=== PATIENT | male | born 1995 | race Caucasian/White ===

== ENCOUNTER 2019-09-28 01:18 | Emergency (ER) | payer SELFPAY ==
[~2019-09-28] VITALS: Ht 177.8 cm; Wt 104.3 kg
[2019-09-28 02:10] VITALS: BP_SYST 143
--- NOTE | 2019-09-28 02:20 | NUR ---
Patient triaged and placed in waiting room. VSS and patient appears in no acute distress at this time. Accompanied by family, awaiting available bed, and MD notified of need for MSE.
--- NOTE | 2019-09-28 02:25 | NUR ---
Pt C/O generalized rash and pruritis since last night. Pt reports bodyaches, fever, generalized wekaness, loss of smell and taste for the past two weeks but has been improving. Recent covid test done yesterday and results pending. VSS will continue to monitor.
--- NOTE | 2019-09-28 02:26 | NUR ---
ER Dr. Sanchez at bedside examining patient.
[2019-09-28] MEDS ORDERED: DIPHENHYDRAMINE HCL 50 MG CAPSULE PO ONE (02:45)
[2019-09-28] MEDS ORDERED: FAMOTIDINE 20 MG TABLET PO ONE (02:45)
[2019-09-28] MEDS ORDERED: PREDNISONE 20 MG TABLET PO ONE (02:45)
[2019-09-28 02:55] VITALS: BP_SYST 134
--- NOTE | 2019-09-28 02:57 | NUR ---
Patient given written and verbal discharge instructions and verbalizes understanding. ER MD discussed with patient the results and treatment provided. Patient in stable condition. ID arm band removed. Rx of Pepcid, Epipen, Benadryl, and Prednisone given. Patient educated on pain management and to follow up with PMD. Pain Scale 0/10. Opportunity for questions provided and answered. Medication side effect fact sheet provided.
== END 2019-09-28 02:55 | disposition home or self-care (01) ==
LOC: SED 01:18
DX: T78.49XA Other allergy, initial encounter (principal); Z88.0 Allergy status to penicillin; X58.XXXA Exposure to other specified factors, initial encounter
CPT/HCPCS: 99284; J7512; Q0163